=== PATIENT | male | born 1950 | race Caucasian/White ===

== ENCOUNTER 2024-01-15 13:26 | Inpatient (IN) | payer OTHER, SELFPAY ==
[2024-01-15] VITALS (7 sets, daily range): BP systolic 164–179; BP diastolic 76–97; BMI 28.3
[2024-01-15 10:50] LABS: Glucose - Point of Care 258 mg/dl (70-99)
[2024-01-15 11:36] LABS: % Basophils 0.6 % (0-2); % Eosinophils 4.9 % (0-6); % Immature Granulocytes 0.4 % (0-0.5); % Lymphocytes 18.8 % (20.5-51.1); % Monocytes 7.2 % (1.7-9.3); % Neutrophils 68.1 % (42.2-75.2); Absolute Eosinophils 0.3 10^3/uL (0-0.7); Absolute Lymphocytes 1.3 10^3/uL (1.2-3.4); Absolute Monocytes 0.5 10^3/uL (0.1-0.6); Absolute Neutrophils 4.7 10^3/uL (1.4-6.5); Hematocrit 43.3 % (39.0-52.0); Hemoglobin 15.5 g/dL (13.0-18.0); Mean Corp Hgb Conc. 35.8 g/dL (33.0-37.0); Mean Corpuscular Hgb 30.9 pg (27.0-31.0); Mean Corpuscular Volume 86.4 fL (80.0-94.0); Mean Platelet Volume 11.6 fL (7.4-10.4); Nucleated Red Blood Cells % 0 % (-); Platelet Count 161 10^3/uL (130-400); Red Blood Cell Count 5.01 10^6/uL (4.70-6.10); White Blood Cell Count 6.9 10^3/uL (4.8-10.8)
[2024-01-15 11:48] LABS: ALT (SGPT) 22 U/L (0-50); AST (SGOT) 23 U/L (17-59); Albumin 4.1 g/dl (3.5-5.0); Alkaline Phosphatase 72 U/L (38-126); Blood Urea Nitrogen 26 mg/dl (9-20); Calcium 9.6 mg/dl (8.4-10.2); Carbon Dioxide 24 mmol/L (22-30); Chloride 101 mmol/L (98-107); Estimated Creatinine Clearance 106 ml/min; Glucose 244 mg/dl (70-99); Potassium 4.5 mmol/L (3.5-5.1); Sodium 132 mmol/L (135-145); Total Bilirubin 0.6 mg/dl (0.2-1.3); Total Protein 6.8 g/dl (6.3-8.2); eGFR > 60.00
[2024-01-15 11:58] LABS: Troponin I < 0.012 ng/ml
--- NOTE | 2024-01-15 13:05 | ED.GENMED ---
Addendum entered and electronically signed by Luis Cheng DO 01/15/24 14:42:
seenw with Pa
ekgs noted
near syncope
? on bblocker
plan
admit to tele
cardiology consult
Original Note:
History of Present Illness
General
Chief Complaint: Blood Sugar Problem
Source: patient
Exam Limitations: none
Time Seen by Provider: 01/15/24 11:24
Travel History
Have you had any contact with someone who has COVID-19?: No
Do you have any symptoms of coronavirus? Fever > 100 degrees, chills, cough, shortness of breath, sore throat, loss of taste or smell, muscle aches, or headache?: No
History of Present Illness
History of Present Illness:
73-year-old male with history of hypertension [id number] diabetes presents complaining of lightheadedness and near syncope over the past several days. Was seen at the urgent care found to have an arrhythmia and sent here. He denies
chest pain or shortness of breath. No fever or cough. He is on metoprolol 25 mg daily. No other complaints at this time
Past History
Past History
ED Past Medical History: HTN, Hypercholesterolemia and NIDDM
ED Past Surgical History: Orthopedic (Left knee replacement)
Social History
Tobacco: Non-smoker
Phy Exam
Physical Exam
Physical Exam:
General: Well-appearing male no acute respiratory distress
ENT: Normocephalic atraumatic
Heart: Bradycardic and slightly irregular
Lungs: Clear no wheeze or rales
Extremities: No cyanosis or edema
Skin warm no rash
Course
Orders/Labs/Results
Orders:
Orders
01/15/24 10:50
Electrocardiogram (*1) Urgent
Reason for Study: Atrial Fibrillation
EKG- Treatment ONCE
01/15/24 11:25
Electrocardiogram (*1) Urgent
Reason for Study: Chest Pain
Cardiac Monitoring- Treatment ONCE
EKG- Treatment ONCE
IV Insert/Care/Rem.- Treatment PRN
O2 Therapy [RESP] Urgent
Titrate/Wean O2 to maintain O2 sat greater than (%): 90
Special Instructions: Maintain sats >/=90%
Pulse Ox/spot Check [RESP] Urgent
Quantity: 1
Special Instructions: ON ROOM AIR
01/15/24 11:26
Complete Blood Count/With Diff Urgent
Comprehensive Metabolic Panel Urgent
Troponin I Urgent
01/15/24 11:44
Add On- LAB Urgent
Tests Added?: tsh reflex to t4
01/15/24 12:39
TSH Routine
Abnormal Lab Results
01/15/24 01/15/24
10:49 11:26
MPV 11.6 H fL
(7.4-10.4)
Lymphocytes % 18.8 L %
(20.5-51.1)
Sodium 132 L mmol/L
(135-145)
BUN 26 H mg/dl
(9-20)
Glucose 244 H mg/dl
(70-99)
POC Glucose 258 H mg/dl
(70-99)
01/15/24 11:26
01/15/24 11:26
Vital Signs
Initial and Last Documented VS:
Initial Vital Signs
Temp Pulse Resp BP Pulse Ox
98.1 F 67 18 178/97 98
01/15/24 10:46 01/15/24 10:46 01/15/24 10:46 01/15/24 10:46 01/15/24 10:46
Last Documented Vital Signs
Temp Pulse Resp BP Pulse Ox
98.1 F 49 14 178/97 96
01/15/24 10:46 01/15/24 12:00 01/15/24 12:00 01/15/24 10:46 01/15/24 12:00
MDM/Problems Addressed
Differential Diagnosis Includes:
Lightheadedness. Question arrhythmia versus anemia versus electrolyte abnormality
Check labs. EKG reviewed and demonstrates bradycardia with what looks like Mobitz type II. Multiple episodes of bradycardia while here. Heart rate drops into the 30s at times. Discussed findings with cardiology and will admit to hospital for
symptomatic bradycardia and near syncope
*Critical Care Note
Total Time (30-74mins, 75-104mins- exclusive of procedures): Not Applicable
ED Attending Note
-
Portions of this chart may have been created with voice recognition software.� Occasional wrong word or��sound alike� substitutions may have occurred due to the inherent limitations of voice recognition software.
Discharge Plan
Departure
Patient Disposition: Admit
Date of Disposition: 01/15/24
Time of Disposition: 13:07
Admit to: Telemetry
Presentation/result/management discussed w/ accepting MD/DO: Hospitalist
Discharge Problem:
Near syncope
Prescriptions:
No Action
metoprolol tartrate 25 mg Tablet
25 mg PO HS
atorvastatin 40 mg Tablet
40 mg PO HS
aspirin 81 mg Tablet,Delayed Release (Dr/Ec)
81 mg PO HS
sildenafil 100 mg Tablet
100 mg PO DAILY PRN (Reason: ED)
tamsulosin 0.4 mg Capsule
0.4 mg PO Q48H@2200
metformin 1,000 mg Tablet
1,000 mg PO BIDWMEAL
ibuprofen [Advil] 200 mg Tablet
600 mg PO DAILYPRN PRN (Reason: mild pain)
docusate sodium [Stool Softener] 100 mg Capsule
100 mg PO HS
Patient Comments:
01/15/2024, [facility] stool softener.
Referrals:
Dean Alfaro MD [Family Provider] -
Interventions
Interventions:
*Risk Screen - Suicide Last Done: 01/15/24 10:46
*General Assessment Last Done: 01/15/24 10:46
*Neglect/Abuse Screening Last Done: 01/15/24 10:46
ED- Fall Risk Assessment Last Done: 01/15/24 11:30
*ED COVID-19 Vaccine History Last Done: 01/15/24 11:29
ED- Cardiac Assessment Last Done: 01/15/24 11:30
ED- Neurological Assessment Last Done: 01/15/24 11:30
ED- Pulmonary Assessment Last Done: 01/15/24 11:30
Discharge Date and Time
Print Language: YORUBA
--- NOTE | 2024-01-15 13:06 | HPS.HSE ---
Family Physician
-
Family Physician: Dean Alfaro
Chief Complaint
-
Abnormal EKG at urgent care
History of Present Illness
73 years old male came from urgent care. Patient drove himself to urgent care for high blood pressure and high blood glucose. He had an EKG there and was told to go to the hospital. His son met him at the urgent care and drove him to the
emergency room. Patient reported lightheadedness but no chest pain. No shortness of breath. No syncopal episode. Blood pressure on arrival 178/97. Heart rate between 43-70. EKG showed sinus rhythm with second-degree heart block. He was
admitted in [place] a year ago for weakness and had some work done there. Patient has a chronic eczema and gets Kenalog injections for eczema, last one was one week ago.
Medical History
Past Medical History
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
Past Surgical History: Reports Other (No recent major surgery)
Social History
Tobacco: Other (Occasional cigar)
Alcohol: None
Drug: None
Personal:
Living: Alone
Employment: Employed
Family History
Family History: Not pertinent
Allergies / Home Medications
Allergies reflects when Allergies were last updated in [employer].
Home Medications with original date entered in [employer]
Allergy/Medication List:
Allergies
Allergy/AdvReac Type Severity Reaction Status Date / Time
No Known Allergies Allergy Unverified 06/25/20 12:12
Home Medications
aspirin 81 mg tablet,delayed release 81 mg PO HS 01/15/24
atorvastatin 40 mg tablet 40 mg PO HS 01/15/24
docusate sodium 100 mg capsule (Stool Softener) 100 mg PO HS 01/15/24
ibuprofen 200 mg tablet (Advil) 600 mg PO DAILYPRN PRN mild pain 01/15/24
metformin 1,000 mg tablet 1,000 mg PO BIDWMEAL 01/15/24
metoprolol tartrate 25 mg tablet 25 mg PO HS 01/15/24
sildenafil 100 mg tablet 100 mg PO DAILY PRN ED 01/15/24
tamsulosin 0.4 mg capsule 0.4 mg PO Q48H@2200 01/15/24
Review of Systems
-
History Source: Patient
A 12 point ROS was completed and negative except as noted: Yes
Constitutional: Reports Fatigue; Denies Fever
EENT: Denies Sore Throat
Respiratory: Denies Cough
Cardiac: Denies Chest Pain
Abdomen/GI: Denies Abdominal Pain
: Denies Dysuria
Musculoskeletal: Denies Joint Pain or Joint Swelling
Skin: Reports Other (chronic eczema )
Neurological: Reports Dizzy
Endocrine: Denies Temp Intolerance
Hematologic/Lymphatic: Denies Bruising
Psych: Denies Panic Disorder
Physical Exam
Vital Signs
Vital Signs
Temp Pulse Resp BP Pulse Ox
98.1 F 49 14 178/97 96
01/15/24 10:46 01/15/24 12:00 01/15/24 12:00 01/15/24 10:46 01/15/24 12:00
Physical Exam
General: No Apparent Distress and Comfortable
HEENT: Moist mucous membranes and Atraumatic
Respiratory: Clear
Cardiac: Regular Rhythm and Bradycardia
GI: Soft and Non Tender
Rectal: No Maroon Stools
Genito-urinary: No costovertebral tender
Musculoskeletal: No Cyanosis
Skin: Rash
Neuro: AO x 3 and Nonfocal/grossly intact
Psych: Calm and Intact Judgment/Insight
Laboratory Results
-
01/15/24 11:26
01/15/24 11:26
Laboratory Results
Total Bilirubin 0.6 mg/dl (0.2-1.3) 01/15/24 11:26
AST 23 U/L (17-59) 01/15/24 11:26
ALT 22 U/L (0-50) 01/15/24 11:26
Alkaline Phosphatase 72 U/L (38-126) 01/15/24 11:26
Troponin I < 0.012 ng/ml 01/15/24 11:26
Impression/Plan
-
73 years old male presented with abnormal EKG, was found to have second-degree AV block, Mobitz type I
# Heart block, second-degree AV block type I
Patient reported lightheadedness but no chest pain or syncopal episode. Heart rate around 40 with good blood pressure
Will hold beta-aurelio for now. Negative troponin. EKG no acute ischemic changes. No evidence of active infection. Normal thyroid function.
No pleuritic chest pain
Continue to monitor on telemetry.
Check Lyme titer
Order echocardiogram
Appreciate cardiology input
# Diabetes. Will continue with insulin sign scale. Avoid hypoglycemia. Patient reported high blood sugar at home.
Check hemoglobin A1c
#History of primary hypertension. Would to avoid lowering blood pressure with bradycardia.
Continue monitoring
# Hyponatremia, sodium 1 admission 132
# DVT prophylaxis
Total time spent to see the patient, examine the patient, review data and lab results, discuss treatment plan with patient, nursing staff, ER doctor around 75 minutes
[2024-01-15 13:56] LABS: TSH 1.46 uIU/ml (0.47-4.68)
--- NOTE | 2024-01-15 14:30 | CON.CAR ---
Addendum entered and electronically signed by Steven Berman MD 01/15/24 17:11:
Patient seen and examined in collaboration with FIELD RESEARCH ASSOCIATE; agree with below.
-73-year-old male with hypertension and diabetes presenting with lightheadedness; found to have Mobitz 1 with frequently dropped complexes.
-Case discussed with EP Cardiology; will hold metoprolol for now and monitor on telemetry over the weekend.
-Patient will be reevaluated by EP Cardiology on Thursday to see if permanent pacemaker implantation is indicated this admission.
Original Note:
Consultation
Consultation Request
Date/Time Consultation Requested: 01/15/2024 14:00
Date/Time Consultation Performed: 01/15/2024 15:00
Requesting Provider: Blas Magaña PA-C
Performing Provider: DEBBIE Pandya
Reason for Consultation: Abnormal EKG
Medical History
-
Chief Complaint: High blood pressure
History of Present Illness:
Eliazar De León is a 73-year-old male (known to Dr. Burnett, his primary vfx artist), with type 2 diabetes, hypertension, and BPH who presented to urgent care with a chief complaint of elevated blood pressure. EKG there was abnormal and he was
told to proceed to the emergency department. He endorses lightheadedness over the past 5 days. No syncope. No dizziness. No chest pain. EKG shows Mobitz 1. Home medication list reflects metoprolol titrate 25 mg. He is unsure whether or not he
took an extra dose last night or perhaps none at all. Cardiology was consulted.
Past Medical History
Past Medical History: HTN and NIDDM
Social History
Tobacco: Smoker (1 cigar daily)
Alcohol: None
Living: Alone
Employment: Employed
Family History
Family History: Reviewed & Not Pertinent
Allergies / Home Medications
Allergy/AdvReac Type Severity Reaction Status Date / Time
No Known Allergies Allergy Unverified 06/25/20 12:12
�Medication �Instructions �Recorded �Confirmed �Type
aspirin 81 mg tablet,delayed 81 mg PO HS 01/15/24 01/15/24 History
release
atorvastatin 40 mg tablet 40 mg PO HS 01/15/24 01/15/24 History
docusate sodium 100 mg capsule 100 mg PO HS 01/15/24 01/15/24 History
(Stool Softener)
ibuprofen 200 mg tablet (Advil) 600 mg PO DAILYPRN PRN mild pain 01/15/24 01/15/24 History
metformin 1,000 mg tablet 1,000 mg PO BIDWMEAL 01/15/24 01/15/24 History
metoprolol tartrate 25 mg tablet 25 mg PO HS 01/15/24 01/15/24 History
sildenafil 100 mg tablet 100 mg PO DAILY PRN ED 01/15/24 01/15/24 History
tamsulosin 0.4 mg capsule 0.4 mg PO Q48H@2200 01/15/24 01/15/24 History
Review of Systems
-
History Source: Patient
All other systems: Negative unless noted
Cardiac: No Symptoms
Abdomen/GI: No Symptoms
: No Symptoms
Neurological: Other (Lightheadedness)
Physical Exam
Vital Signs
Temp Pulse Resp BP Pulse Ox
97.5 F 50 16 171/87 99
01/15/24 15:05 01/15/24 15:05 01/15/24 15:05 01/15/24 14:00 01/15/24 15:05
Lab Results
01/15/24 11:26
01/15/24 11:26
Troponin I < 0.012 ng/ml 01/15/24 11:26
Physical Exam
General: Well Developed, Well Nourished, No Apparent Distress and Comfortable
HEENT: Normocephalic, Anicteric and Moist Mucous Membranes
Respiratory: Non Labored Respirations
Cardiac: S1/S2 and Irregular Rhythm; Negative Peripheral Edema
Breast: Deferred by me
GI: Soft, Non Tender, Non Distended and Normal Bowel Sounds
Rectal: Deferred by Provider
Genito-urinary: No Costovertebral Tender
Musculoskeletal: No Clubbing, No Cyanosis and No Edema
Skin: Warm and Dry
Neuro: AO x 3
Hematologic/Lymphatic: No Lymphadenopathy
Psych: Calm
Impression / Plan
-
Mobitz I
-Intermittent lightheadedness without syncope
-Hold beta-aurelio
-Unclear whether he took any beta-aurelio last night or actually double
-Echocardiogram
-Follow telemetry
HTN
-Hold beta aurelio as above
NIDDM
Data Reviewed
-
EKG: Report Reviewed by me (Sinus rhythm with second-degree AV block (Mobitz 1), rate 54)
Labs: Labs Reviewed by me
Old Records: Requested
--- NOTE | 2024-01-15 14:40 | PTCARENOTE ---
Addendum entered by Giovanna Mcdonald RN 01/15/24 18:42:
1515
Original Note:
Rec'd Pt A,A+O, denies pain, denies lightheadedness while lying in bed.
--- NOTE | 2024-01-15 15:58 | CM ---
CM following for DC planning needs.
Met w/ patient at bedside to complete initial assessment. Pt. resides in a private, multi level home alone. Functionally, patient is indep. w/ ADLs, mobility without the use of any assisted devices. There is no other DME in the home.
Pt. has Rx plan and uses [facility] [address] [facility] [place] for prescription needs.
Anticipated DC plan is for home without needs.
CM to follow.
[2024-01-15 16:59] LABS: Glucose - Point of Care 192 mg/dl (70-99)
[2024-01-15] MEDS: NOVOLOG FLEXPEN-HIGH RESISTANCE 2 UNITS SC (17:23)
[2024-01-15 20:59] LABS: Glucose - Point of Care 196 mg/dl (70-99)
[2024-01-15] MEDS: LIPITOR 40 MG PO (21:21)
[2024-01-15] MEDS: ASPIR LOW (ENTERIC COATED) 81 MG PO (21:21)
[2024-01-16] VITALS (8 sets, daily range): BP systolic 131–183; BP diastolic 67–94; PULSE 59; BMI 27.2
[2024-01-16 05:47] LABS: Blood Urea Nitrogen 21 mg/dl (9-20); Calcium 9.6 mg/dl (8.4-10.2); Carbon Dioxide 26 mmol/L (22-30); Chloride 104 mmol/L (98-107); Estimated Creatinine Clearance 106 ml/min; Glucose 170 mg/dl (70-99); Potassium 4.4 mmol/L (3.5-5.1); Sodium 133 mmol/L (135-145); eGFR > 60.00
--- NOTE | 2024-01-16 06:34 | W.PN.HOSP.TC ---
Today's Communication/Plan
-
.
Assessment / Plan
Assessment / Plan
Physical Exam
General: No Apparent Distress and Comfortable
HEENT: Moist mucous membranes and Atraumatic
Respiratory: Clear
Cardiac: Regular Rhythm and Bradycardia
GI: Soft and Non Tender
Rectal: No Maroon Stools
Genito-urinary: No costovertebral tender
Musculoskeletal: No Cyanosis
Skin: Rash
Neuro: AO x 3 and Nonfocal/grossly intact
Psych: Calm and Intact Judgment/Insight
73 years old male presented with abnormal EKG, was found to have second-degree AV block, Mobitz type I
# Heart block, second-degree AV block type I
Patient feels well this morning. Not dizzy. Heart rate around 50
Patient reported lightheadedness but no chest pain or syncopal episode.
Continue to hold beta-aurelio for now. Negative troponin. EKG no acute ischemic changes. No evidence of active infection. Normal thyroid function.
No pleuritic chest pain
Continue to monitor on telemetry.
Check Lyme titer
Echocardiogram showed left ventricular ejection fraction 55 to 60%, mild to moderate MR, trace aortic regurgitation, mild TR.
Appreciate cardiology input
# Diabetes.
Poorly controlled.
Blood glucose 170 this morning
will continue with insulin sliding scale. Will add Lantus avoid hypoglycemia. Patient reported high blood sugar at home.
Hemoglobin A1c around 10.[address] back on metformin. Patient will need a better outpatient management. Will refer him to diabetic education office
#History of primary hypertension. Would to avoid lowering blood pressure with bradycardia.
Continue monitoring
# Hyponatremia, sodium on admission 132. Stable sodium around 133
# DVT prophylaxis
Total time spent to see the patient, examine the patient, review data and lab results, discuss treatment plan with patient, nursing staff around 55 minutes
Anticipated Discharge: Within 24 hours
Subjective/Interval History
-
Date of Service: January 16, 2024
No chest pain
No sob
Slept well
Night team: no issues over night
Objective Data
-
Labs:
Laboratory Results
01/16/24
05:08
Sodium 133 L
Potassium 4.4
Chloride 104
Carbon Dioxide 26
BUN 21 H
Creatinine 0.7
Glucose 170 H
Calcium 9.6
Vital Signs:
Vital Signs
Temp Pulse Resp BP Pulse Ox
97.8 F 46 16 179/96 95
01/15/24 23:11 01/15/24 22:55 01/15/24 23:11 01/15/24 22:55 01/15/24 19:20
I&O
01/14/24 01/15/24 01/16/24
06:59 06:59 06:59
Output Total 400 / 400
Balance -400 / -400
[2024-01-16 07:59] LABS: Glucose - Point of Care 170 mg/dl (70-99)
[2024-01-16 09:09] LABS: Glycohemoglobin (HgbA1c) 10.6 % (4.0-5.6)
[2024-01-16] MEDS: NOVOLOG FLEXPEN-HIGH RESISTANCE 2 UNITS SC ×2 (09:51→13:26)
[2024-01-16] MEDS: FLOMAX 0.400000000000000022 MG PO (09:52)
--- NOTE | 2024-01-16 11:10 | W.PN.CD ---
Addendum entered and electronically signed by Steven Berman MD 01/16/24 13:58:
Patient seen and examined in collaboration with CONTRACT MANAGEMENT SPECIALIST; agree with below.
-Patient found to have a 9-Beat run of NSVT on telemetry; near-syncope could have been secondary to progressive heart block versus VT.
-Patient will undergo a Lexiscan stress test on Thursday, followed by EP Cardiology evaluation.
-Continue library monitor.
Original Note:
Today's Communication / Plan
-
Add lisinopril 5 mg PO daily for better BP control
Lexiscan stress test Thursday
Remain off BB and follow telemetry
EP evaluation this admit
Impression / Plan
-
Vikas Elizabeth, 2:1 conduction:
-Intermittent lightheadedness without syncope
-Hold beta-aurelio
-Follow telemetry
-EP consult Thursday
-Echo 01/15/24: LV ejection fraction is 55-60%. Mild to moderate mitral regurgitation.
NSVT:
-EF normal, K+ normal, check mag
-off BB for above
-Lexiscan nuclear stress test Thursday
HTN
-BB held and BP high
-add lisinopril 5 mg daily
NIDDM:
-per primary
Subjective:
feels good this AM no dizziness
Physical Exam
Vital Signs/Labs
Vital Signs
Temp Pulse Resp BP Pulse Ox
98.0 F 55 18 183/88 97
01/16/24 07:30 01/16/24 08:00 01/16/24 07:30 01/16/24 07:51 01/16/24 07:30
01/15/24 01/16/24 01/17/24
06:59 06:59 06:59
Actual Weight 94.4 kg 90.9 kg
01/15/24 11:26
01/16/24 05:08
TSH 1.46 uIU/ml (0.47-4.68) 01/15/24 12:39
LAB Results
01/15/24
11:26
Troponin I < 0.012
Physical Exam
Constitutional: No acute distress
EENT: Anicteric
Cardiovascular: Rhythm & rate is regular
Respiratory: Respiratory effort normal and Lungs clear to auscul.
GI: Soft, Non tender and Normal bowel sounds
Neuro/Psych: AO x 3
Other: Skin (warm and dry)
Data Reviewed
-
Date of Service: January 16, 2024
EKG: Other (SR weaver 1 episodes 2:1)
[2024-01-16 11:59] LABS: Magnesium 1.9 mg/dl (1.6-2.3)
[2024-01-16 13:12] LABS: Glucose - Point of Care 175 mg/dl (70-99)
[2024-01-16] MEDS: ZESTRIL 5 MG PO (13:26)
[2024-01-16 17:28] LABS: Glucose - Point of Care 232 mg/dl (70-99)
[2024-01-16] MEDS: GLUCOPHAGE 1000 MG PO (17:53)
[2024-01-16] MEDS: NOVOLOG FLEXPEN-HIGH RESISTANCE 7 UNITS SC (17:53)
[2024-01-16] MEDS: HEPARIN 5000 UNITS SC (19:46)
[2024-01-16 21:59] LABS: Glucose - Point of Care 118 mg/dl (70-99)
[2024-01-16] MEDS: ASPIR LOW (ENTERIC COATED) 81 MG PO (22:10)
[2024-01-16] MEDS: LIPITOR 40 MG PO (22:10)
[2024-01-16] MEDS: LANTUS 0.100000000000000006 UNITS SC (22:10)
[2024-01-17] MEDS: TYLENOL 650 MG PO (02:36)
[2024-01-17 05:50] VITALS: BP 119/47
--- NOTE | 2024-01-17 06:34 | W.PN.HOSP.TC ---
Today's Communication/Plan
-
.
Assessment / Plan
Assessment / Plan
Physical Exam
General: No Apparent Distress and Comfortable
HEENT: Moist mucous membranes and Atraumatic
Respiratory: Clear
Cardiac: Regular Rhythm and Bradycardia
GI: Soft and Non Tender
Rectal: No Maroon Stools
Genito-urinary: No costovertebral tender
Musculoskeletal: No Cyanosis
Skin: Rash
Neuro: AO x to self and surroundings. Followed commands.
Psych: Calm and Intact Judgment/Insight
73 years old male presented with abnormal EKG, was found to have second-degree AV block, Mobitz type I
# Heart block, second-degree AV block type I
Patient feels well. Not dizzy. Heart rate was around 50
Had a short run of NSVT on telemetry
Patient reported lightheadedness but no chest pain or syncopal episode.
Continue to hold beta-aurelio for now. Negative troponin. EKG no acute ischemic changes. No evidence of active infection. Normal thyroid function.
No pleuritic chest pain
Continue to monitor on telemetry.
Lyme test is pending
Mg 1.9, K 4.4
Echocardiogram showed left ventricular ejection fraction 55 to 60%, mild to moderate MR, trace aortic regurgitation, mild TR.
Appreciate cardiology input
# Mild memory impairment/ cognitive impairment
Not a confirmed diagnosis yet. Daughter Dayanna took him to neurologist Dr. Wilkinson in [place] with [facility] after family suspected dementia. Pt is scheduled for MRI brain in OP setting on 02/08. Possibilty of not taking his meds regularly at home.
# Right shoulder pain
c/w Tylenol
Add low dose Tramadol PRN
# Diabetes.
Poorly controlled.
Blood glucose 130 this morning
will continue with insulin sliding scale. Added low dose Lantus ( hold tonight for NPO status in AM)
Avoid hypoglycemia. Patient reported high blood sugar at home.
Hemoglobin A1c around 10.6
Back on metformin. Patient will need a better outpatient management. Will refer him to OP diabetic education office
#History of primary hypertension. Would to avoid lowering blood pressure with bradycardia. Given low dose FERNANDO
Continue monitoring
# Hyponatremia, sodium on admission 132. Stable sodium around 133
BMP in am
# DVT prophylaxis, SQ Heparin
Total time spent to see the patient, examine the patient, review data and lab results, discuss treatment plan with patient, daughter, nursing staff around 57 minutes
Anticipated Discharge: > 48 hours
Subjective/Interval History
-
Date of Service: January 17, 2024
No events over night
No chest pain
pain complained of right shoulder pain, took Tylenol
No chest pain
Objective Data
-
Vital Signs:
Vital Signs
Temp Pulse Resp BP Pulse Ox
98.1 F 54 18 119/47 96
01/16/24 22:05 01/17/24 06:00 01/16/24 22:05 01/17/24 05:50 01/16/24 22:05
I&O
01/15/24 01/16/24 01/17/24
06:59 06:59 06:59
Intake Total 720 / 720
Output Total 400 / 400 200 / 200
Balance -400 / -400 520 / 520
[2024-01-17 07:58] VITALS: BP 123/73
[2024-01-17 08:02] LABS: Glucose - Point of Care 130 mg/dl (70-99)
[2024-01-17 09:00] VITALS: BMI 26.9
[2024-01-17] MEDS: FLOMAX 0.400000000000000022 MG PO (09:14)
[2024-01-17] MEDS: NOVOLOG FLEXPEN-HIGH RESISTANCE SC (09:14)
[2024-01-17] MEDS: HEPARIN 5000 UNITS SC ×2 (09:15→20:14)
[2024-01-17] MEDS: GLUCOPHAGE 1000 MG PO ×2 (09:15→17:29)
[2024-01-17] MEDS: ZESTRIL 5 MG PO (09:15)
--- NOTE | 2024-01-17 10:28 | PTCARENOTE ---
Assumed care of pt from night RN. Pt received awake and alert. When asked what day it was he said 'Mother's Day' Pt reoriented to place and time. Seems a bit forgetful. VSS, HASMUKH shows NSR with first degree AVB, POX 96% on RA. He denies any pain
or discomfort at this time. Plan is for stress test tomorrow.
[2024-01-17 12:02] VITALS: BP 151/73
[2024-01-17 12:04] LABS: Glucose - Point of Care 148 mg/dl (70-99)
[2024-01-17] MEDS: NOVOLOG FLEXPEN-HIGH RESISTANCE 1 UNITS SC (12:04)
[2024-01-17 15:15] VITALS: PULSE 78
[2024-01-17 15:43] VITALS: BP 128/73
--- NOTE | 2024-01-17 16:08 | W.PN.CD ---
Today's Communication / Plan
-
-Patient developed transient Mobitz 2 heart block overnight on telemetry.
-Lexiscan nuclear stress test tomorrow; if unremarkable, will undergo permanent pacemaker implantation afterwards.
-NPO after midnight.
-Holding beta-aurelio; resume post-device.
Impression / Plan
-
Advanced heart block (Mobitz 1 and Mobitz II):
-Intermittent lightheadedness without syncope
-Holding beta-aurelio.
-Continue panel monitor.
-Echo 01/15/24: LV ejection fraction is 55-60%. Mild to moderate mitral regurgitation.
-Permanent pacemaker implantation after stress test tomorrow, if no ischemia on stress test.
NSVT:
-EF normal, K+ normal, check mag
-Lexiscan nuclear stress test tomorrow; if unremarkable, will undergo permanent pacemaker implantation afterwards.
-NPO after midnight.
-Holding beta-aurelio; resume post-device.
HTN
-Blood pressure is fairly controlled; continue current medications.
NIDDM:
-per primary
Subjective:
Patient developed transient Mobitz 2 heart block overnight on telemetry.
Physical Exam
Vital Signs/Labs
Vital Signs
Temp Pulse Resp BP Pulse Ox
98.2 F 67 16 128/73 97
01/17/24 15:43 01/17/24 15:43 01/17/24 15:43 01/17/24 15:43 01/17/24 15:43
01/16/24 01/17/24 01/18/24
06:59 06:59 06:59
Actual Weight 94.4 kg 90.9 kg
01/15/24 11:26
01/16/24 05:08
Magnesium 1.9 mg/dl (1.6-2.3) 01/16/24 05:08
TSH 1.46 uIU/ml (0.47-4.68) 01/15/24 12:39
LAB Results
01/15/24
11:26
Troponin I < 0.012
Physical Exam
Constitutional: No acute distress and Comfortable
EENT: Anicteric
Cardiovascular: Rhythm & rate is regular, Pedal edema is absent, Systolic murmur absent and S1S2 is normal
Respiratory: Respiratory effort normal and Lungs clear to auscul.
GI: Soft
Neuro/Psych: AO x 3
Other: Skin (Warm, dry, intact)
Data Reviewed
-
Date of Service: January 17, 2024
EKG: Tracing Personally Visualized and interpreted (Telemetry: Transient Mobitz 2 heart block)
Medical Tests (PFT, Pathology etc): Discussed with Patient and Discussed with Family (Daughter via telephone)
Labs: Labs Reviewed by me
[2024-01-17 17:28] LABS: Glucose - Point of Care 184 mg/dl (70-99)
[2024-01-17] MEDS: NOVOLOG FLEXPEN-HIGH RESISTANCE 2 UNITS SC (17:28)
[2024-01-17 20:20] VITALS: BP 151/91
[2024-01-17] MEDS: ULTRAM 25 MG PO (20:24)
--- NOTE | 2024-01-17 21:15 | PTCARENOTE ---
aaox3 but forgetful. second degree hb. (mobitz 2) hr in the 30's at times. pt asymptomatic. pt updated on plan of care. vss will monitor.
[2024-01-17 21:36] LABS: Glucose - Point of Care 117 mg/dl (70-99)
[2024-01-17] MEDS: LIPITOR 40 MG PO (21:40)
[2024-01-17] MEDS: ASPIR LOW (ENTERIC COATED) 81 MG PO (21:40)
[2024-01-17] MEDS: LANTUS 0.100000000000000006 UNITS SC (21:41)
[2024-01-18] VITALS (7 sets, daily range): BP systolic 94–145; BP diastolic 61–75; BMI 26.9
[2024-01-18 04:49] LABS: Hematocrit 44.3 % (39.0-52.0); Hemoglobin 15.8 g/dL (13.0-18.0); Mean Corp Hgb Conc. 35.7 g/dL (33.0-37.0); Mean Corpuscular Hgb 30.7 pg (27.0-31.0); Mean Corpuscular Volume 86.2 fL (80.0-94.0); Mean Platelet Volume 11.6 fL (7.4-10.4); Platelet Count 157 10^3/uL (130-400); Red Blood Cell Count 5.14 10^6/uL (4.70-6.10); Red Cell Dist. Width 11.9 % (11.5-14.5); White Blood Cell Count 6.8 10^3/uL (4.8-10.8)
[2024-01-18 05:17] LABS: Blood Urea Nitrogen 32 mg/dl (9-20); Calcium 9.5 mg/dl (8.4-10.2); Carbon Dioxide 22 mmol/L (22-30); Chloride 106 mmol/L (98-107); Estimated Creatinine Clearance 93 ml/min; Glucose 97 mg/dl (70-99); Potassium 4.4 mmol/L (3.5-5.1); Sodium 134 mmol/L (135-145); eGFR > 60.00
[2024-01-18] MEDS: NOVOLOG FLEXPEN-HIGH RESISTANCE SC ×3 (05:39→22:23)
[2024-01-18 07:54] LABS: Glucose - Point of Care 92 mg/dl (70-99)
--- NOTE | 2024-01-18 08:23 | PTCARENOTE ---
Pt AAOx2 this AM, pt somewhat confused to place, stating he was 'woken up at 0630 & put here waiting for his room'. This RN reoriented pt & explained that he is in his hospital room & it's the same room since admission. Discussed plan of care for
the day & pt verbalized understanding of upcoming NM stress test, but then insisting he needs his sneakers from , eventhough it was explained he would be receiving a medication to stimulate his heart rather than running on a treadmill. This RN
also questioned pt whether he has some confusion at home. Pt admitted that he does, but stated 'please don't tell anyone that'. Emotional support provided. Pt taken via wheelchair to [place]. Plan of care ongoing.
[2024-01-18] MEDS: FLUSH (NSS) 1 FLUSH IV (10:25)
[2024-01-18] MEDS: LEXISCAN 0.400000000000000022 MG IV (10:25)
[2024-01-18] MEDS: GLUCOPHAGE PO (12:25)
[2024-01-18] MEDS: FLOMAX PO (12:25)
[2024-01-18] MEDS: HEPARIN SC ×2 (13:04→13:12)
[2024-01-18 13:05] LABS: Glucose - Point of Care 122 mg/dl (70-99)
[2024-01-18] MEDS: ZESTRIL 5 MG PO (13:06)
--- NOTE | 2024-01-18 13:29 | W.PN.UPDATE ---
Update Note
Progress Note Update
Nuclear stress: no evidence of ischemia/infarction. EF 66%. Full report to follow.
--- NOTE | 2024-01-18 13:47 | W.PN.CD ---
Today's Communication / Plan
-
PPM in am
Follow telemetry
Impression / Plan
-
Background: 73M with type 2 diabetes, hypertension, and BPH who presented to urgent care with a chief complaint of elevated blood pressure
Buttoner: Dr. Burnett
Advanced heart block (Mobitz I and Mobitz II):
-Intermittent lightheadedness without syncope
-Holding beta-aurelio.
-Continue management development specialist.
-Echo 01/15/24: LV ejection fraction is 55-60%. Mild to moderate mitral regurgitation.
-Permanent pacemaker implantation tomorrow, NPO after midnight
NSVT:
-EF normal, with stable electrolytes
-Lexiscan nuclear stress test unremarkable, full report to follow
-Holding beta-aurelio; resume post-device.
HTN
-Blood pressure is fairly controlled; continue current medications.
NIDDM, Hgba1c 10.6%, per primary
Subjective:
Denies chest pain and shortness of breath
Physical Exam
Vital Signs/Labs
Vital Signs
Temp Pulse Resp BP Pulse Ox
98.1 F 59 20 138/75 99
01/18/24 13:00 01/18/24 12:00 01/18/24 13:00 01/18/24 13:06 01/18/24 13:00
01/17/24 01/18/24 01/19/24
06:59 06:59 06:59
Actual Weight 90.9 kg 89.811 kg
01/18/24 04:38
01/18/24 04:38
Magnesium 2.0 mg/dl (1.6-2.3) 01/18/24 04:38
TSH 1.46 uIU/ml (0.47-4.68) 01/15/24 12:39
Physical Exam
Constitutional: No acute distress and Comfortable
EENT: Anicteric and Moist mucous membranes
Cardiovascular: Rhythm/rate is irregular and S1S2 is normal
Respiratory: Respiratory effort normal and Lungs clear to auscul.
GI: Soft, Distention absent, Flat, Non tender and Normal bowel sounds
Neuro/Psych: AO x 3
Other: Skin (warm and dry)
Data Reviewed
-
Date of Service: January 18, 2024
Labs: Labs Reviewed by me
--- NOTE | 2024-01-18 15:00 | W.PN.HOSP.TC ---
Today's Communication/Plan
-
npo after mn for PPM
Assessment / Plan
Assessment / Plan
Physical Exam
General: No Apparent Distress and Comfortable
HEENT: Moist mucous membranes and Atraumatic
Respiratory: Clear
Cardiac: Regular Rhythm and Bradycardia
GI: Soft and Non Tender
Rectal: No Maroon Stools
Genito-urinary: No costovertebral tender
Musculoskeletal: No Cyanosis
Skin: Rash
Neuro: AO x to self and surroundings. Followed commands.
Psych: Calm and Intact Judgment/Insight
73 years old male presented with abnormal EKG, was found to have second-degree AV block, Mobitz type I
# Heart block, second-degree AV block type II
Patient feels well. Not dizzy. Heart rate was around 50
Echocardiogram showed left ventricular ejection fraction 55 to 60%, mild to moderate MR, trace aortic regurgitation, mild TR.
Appreciate cardiology input
Stress Test today
tentaive PPM in AM -ppm in place
holding BB, can restart once PPM in place
# Mild memory impairment/ cognitive impairment
Not a confirmed diagnosis yet. Daughter Dayanna took him to neurologist Dr. Wilkinson in [place] with [place] after family suspected dementia. Pt is scheduled for MRI brain in OP setting on 02/08. Possibilty of not taking his meds regularly at home.
# Right shoulder pain
c/w Tylenol
Add low dose Tramadol PRN
# Diabetes.
Poorly controlled.
Blood glucose 130 this morning
will continue with insulin sliding scale. Added low dose Lantus (half dose tonight due to NPO after MN)
Avoid hypoglycemia. Patient reported high blood sugar at home.
Hemoglobin A1c around 10.6
Back on metformin. Patient will need a better outpatient management. Will refer him to OP diabetic education office
#History of primary hypertension. Would to avoid lowering blood pressure with bradycardia. Given low dose FERNANDO
Continue monitoring
# Hyponatremia, sodium on admission 132. Stable sodium around 133
BMP in am
# DVT prophylaxis, SQ Heparin
Total time spent to see the patient, examine the patient, review data and lab results, discuss treatment plan with patient, daughter, nursing staff around 57 minutes
Anticipated Discharge: 24 - 48 hours
Subjective/Interval History
-
Date of Service: January 18, 2024
no acute events
Objective Data
-
Labs:
Laboratory Results
01/18/24
04:38
WBC 6.8
Hgb 15.8
Hct 44.3
Plt Count 157
Sodium 134 L
Potassium 4.4
Chloride 106
Carbon Dioxide 22
BUN 32 H
Creatinine 0.8
Glucose 97
Calcium 9.5
Vital Signs:
Vital Signs
Temp Pulse Resp BP Pulse Ox
98.1 F 59 20 138/75 99
01/18/24 13:00 01/18/24 14:00 01/18/24 13:00 01/18/24 13:06 01/18/24 13:00
I&O
01/17/24 01/18/24 01/19/24
06:59 06:59 06:59
Intake Total 720 / 720
Output Total 200 / 200
Balance 520 / 520
Review of Systems
-
History Source: Patient
All other systems: Not reviewed unless documented
Data Reviewed
-
Labs: Labs Reviewed by me
--- NOTE | 2024-01-18 15:04 | CM ---
Chart reviewed. Patient is independent of ADLS, lives alone in a 3 STH, 0 DME. Plan is for the patient to return home. CM to follow.
[2024-01-18 16:26] LABS: Lyme Antibody Screen, EIA Negative (Negative)
[2024-01-18 18:11] LABS: Glucose - Point of Care 155 mg/dl (70-99)
[2024-01-18] MEDS: GLUCOPHAGE 1000 MG PO (18:26)
[2024-01-18] MEDS: NOVOLOG FLEXPEN-HIGH RESISTANCE 2 UNITS SC (18:26)
[2024-01-18] MEDS: LANTUS 0.0500000000000000028 UNITS SC (21:05)
[2024-01-18 21:06] LABS: Glucose - Point of Care 128 mg/dl (70-99)
[2024-01-18] MEDS: LIPITOR 40 MG PO (21:06)
[2024-01-18] MEDS: ASPIR LOW (ENTERIC COATED) 81 MG PO (21:06)
[2024-01-18] MEDS: HEPARIN 5000 UNITS SC (21:06)
[2024-01-19] VITALS (28 sets, daily range): BP systolic 104–154; BP diastolic 48–104; PULSE 44–57; O2SAT 99; BMI 27.2
[2024-01-19] MEDS: ULTRAM 25 MG PO ×2 (00:16→22:19)
[2024-01-19 06:30] LABS: Hematocrit 46.1 % (39.0-52.0); Hemoglobin 16.3 g/dL (13.0-18.0); Mean Corp Hgb Conc. 35.4 g/dL (33.0-37.0); Mean Corpuscular Hgb 30.9 pg (27.0-31.0); Mean Corpuscular Volume 87.5 fL (80.0-94.0); Mean Platelet Volume 11.7 fL (7.4-10.4); Platelet Count 177 10^3/uL (130-400); Red Blood Cell Count 5.27 10^6/uL (4.70-6.10)
[2024-01-19 06:48] LABS: Blood Urea Nitrogen 29 mg/dl (9-20); Calcium 9.6 mg/dl (8.4-10.2); Carbon Dioxide 22 mmol/L (22-30); Chloride 105 mmol/L (98-107); Estimated Creatinine Clearance 93 ml/min; Glucose 125 mg/dl (70-99); Magnesium 2.1 mg/dl (1.6-2.3); Potassium 4.6 mmol/L (3.5-5.1); Sodium 133 mmol/L (135-145); eGFR > 60.00
[2024-01-19 07:31] LABS: Glucose - Point of Care 121 mg/dl (70-99)
[2024-01-19] MEDS: NOVOLOG FLEXPEN-HIGH RESISTANCE SC ×2 (07:32→12:14)
--- NOTE | 2024-01-19 07:36 | PTCARENOTE ---
Pt clipped and wiped for PPM. L FA iv site placed.
--- NOTE | 2024-01-19 07:45 | PTCARENOTE ---
Assumed care of pt from prev nsg shift. Pt AAOx2-3, pt mildly confused to time & sometimes to place, but easily reoriented. Pt w/BP stable, HR is 30's-40's at rest. 50's w/activity. Pt is in a 3rd degree heart block on telemetry monitoring. No c/o
CP or SOB. Pt w/call griffith within reach & plan of care ongoing.
[2024-01-19] MEDS: FLOMAX 0.400000000000000022 MG PO (10:08)
[2024-01-19] MEDS: ZESTRIL 5 MG PO (10:08)
[2024-01-19] MEDS: GLUCOPHAGE 1000 MG PO ×2 (10:08→17:53)
[2024-01-19] MEDS: HEPARIN 5000 UNITS SC ×2 (10:09→20:28)
--- NOTE | 2024-01-19 11:20 | CM ---
Chart reviewed. Patient is independent of ADLS, lives alone in a 3 STH, 0 DME. Plan is for the patient to return home. CM to follow
[2024-01-19 12:04] LABS: Glucose - Point of Care 113 mg/dl (70-99)
[2024-01-19] MEDS: DOPamine 400 MG 250 IV (13:20)
[2024-01-19] MEDS: FLUSH (NSS) 1 FLUSH IV (13:24)
--- NOTE | 2024-01-19 13:25 | PTCARENOTE ---
Pt in & out of 3rd degree heart block, SB, & 2nd degree heart block on telemetry monitoring. HR in upper 30's-40's. Pt reporting 'feeling dizzy', this RN advised pt to remain in bed until his planned PPM procedure. Cardiac PA notified & ordered
rec'd to start Dopamine IV drip on pt until taken to blood and plasma laboratory assistant for PPM. Advised by Cardiology pt will be the next case. Pt in bed w/Dopamine drip infusing at ordered rate. VS stable w/initiation HR 44, BP 124/71. Will check next BP in 15 mins from
initiation of drip. Pt w/call griffith within reach.
Repeat BP 110/71, HR upper 50's & low 60's. Pt compliant w/bedrest.
--- NOTE | 2024-01-19 14:07 | W.PN.HOSP.TC ---
Today's Communication/Plan
-
ppm today
Assessment / Plan
Assessment / Plan
Physical Exam
General: No Apparent Distress and Comfortable
HEENT: Moist mucous membranes and Atraumatic
Respiratory: Clear
Cardiac: Regular Rhythm and Bradycardia
GI: Soft and Non Tender
Rectal: No Maroon Stools
Genito-urinary: No costovertebral tender
Musculoskeletal: No Cyanosis
Skin: Rash
Neuro: AO x to self and surroundings. Followed commands.
Psych: Calm and Intact Judgment/Insight
73 years old male presented with abnormal EKG, was found to have second-degree AV block, Mobitz type I
# Heart block, second-degree AV block type II
Patient feels well. Not dizzy. Heart rate was around 50
Echocardiogram showed left ventricular ejection fraction 55 to 60%, mild to moderate MR, trace aortic regurgitation, mild TR.
Appreciate cardiology input
Stress Test today
tentaive PPM in AM -ppm in place
holding BB, can restart once PPM in place
# Mild memory impairment/ cognitive impairment
Not a confirmed diagnosis yet. Daughter Dayanna took him to neurologist Dr. Wilkinson in [place] with Kalia after family suspected dementia. Pt is scheduled for MRI brain in OP setting on 02/08. Possibilty of not taking his meds regularly at home.
# Right shoulder pain
c/w Tylenol
Add low dose Tramadol PRN
# Diabetes.
Poorly controlled.
Blood glucose 130 this morning
will continue with insulin sliding scale. Added low dose Lantus
Avoid hypoglycemia. Patient reported high blood sugar at home.
Hemoglobin A1c around 10.6
Back on metformin. Patient will need a better outpatient management. Will refer him to OP diabetic education office
#History of primary hypertension. Would to avoid lowering blood pressure with bradycardia. Given low dose FERNANDO
Continue monitoring
# Hyponatremia, sodium on admission 132. Stable sodium around 133
BMP in am
# DVT prophylaxis, SQ Heparin
Total time spent to see the patient, examine the patient, review data and lab results, discuss treatment plan with patient, daughter, nursing staff around 55 minutes
Anticipated Discharge: Within 24 hours
Subjective/Interval History
-
Date of Service: January 19, 2024
no acute events, ppm today
Objective Data
-
Labs:
Laboratory Results
01/19/24
06:15
WBC 8.0
Hgb 16.3
Hct 46.1
Plt Count 177
Sodium 133 L
Potassium 4.6
Chloride 105
Carbon Dioxide 22
BUN 29 H
Creatinine 0.8
Glucose 125 H
Calcium 9.6
Vital Signs:
Vital Signs
Temp Pulse Resp BP Pulse Ox
97.7 F 46 14 128/104 98
01/19/24 11:31 01/19/24 13:21 01/19/24 11:31 01/19/24 13:21 01/19/24 11:31
I&O
01/18/24 01/19/24 01/20/24
06:59 06:59 06:59
Intake Total 480 / 480 40 / 40
Balance 480 / 480 40 / 40
Review of Systems
-
History Source: Patient
All other systems: Not reviewed unless documented
Data Reviewed
-
Labs: Labs Reviewed by me
--- NOTE | 2024-01-19 14:50 | PTCARENOTE ---
Report given to Tamika in the EP lab; 2nd set of CHG wipes completed on pt & pt picked up by EP nurses. Taken for new PPM in his bed w/Dopamine infusion continuing. Plan of care ongoing.
--- NOTE | 2024-01-19 16:20 | W.PN.CD ---
Today's Communication / Plan
-
- PPM today
- Resume beta blockers post implant
Impression / Plan
-
Background: 73M with type 2 diabetes, hypertension, and BPH who presented to urgent care with a chief complaint of elevated blood pressure
Maid Cleaning Cooking: Dr. Burnett
Advanced heart block (Mobitz I and Mobitz II):
-Intermittent lightheadedness without syncope
-Holding beta-aurelio.
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
-Echo 01/15/24: LV ejection fraction is 55-60%. Mild to moderate mitral regurgitation.
-Permanent pacemaker implantation today
NSVT:
-EF normal, with stable electrolytes
-Lexiscan nuclear stress test unremarkable, full report to follow
-Holding beta-aurelio; resume post-device.
HTN
-Blood pressure is fairly controlled; continue current medications.
NIDDM, Hgba1c 10.6%, per primary
Subjective:
Denies chest pain and shortness of breath
Physical Exam
Vital Signs/Labs
Vital Signs
Temp Pulse Resp BP Pulse Ox
97.7 F 81 14 122/66 98
01/19/24 11:31 01/19/24 14:45 01/19/24 11:31 01/19/24 14:45 01/19/24 11:31
01/18/24 01/19/24 01/20/24
06:59 06:59 06:59
Actual Weight 89.811 kg 90.9 kg
01/19/24 06:15
01/19/24 06:15
Magnesium 2.1 mg/dl (1.6-2.3) 01/19/24 06:15
TSH 1.46 uIU/ml (0.47-4.68) 01/15/24 12:39
Physical Exam
Constitutional: No acute distress and Comfortable
EENT: Anicteric and Moist mucous membranes
Cardiovascular: Rhythm & rate is regular, JVD pressure is normal and Systolic murmur absent
Respiratory: Respiratory effort normal, Wheeze Absent and Crackles Absent
GI: Soft, Distention absent, Non tender and Normal bowel sounds
Neuro/Psych: Alert, Oriented and AO x 3
Other: Cardiac Device Site
Data Reviewed
-
Date of Service: January 19, 2024
Medical Decision Making: Reviewed Test Results, Independent Historian Assessment, Test Interpretation and Review of Case with other Provider
EKG: Tracing Personally Visualized and interpreted
Echo: Report Reviewed by me
Labs: Labs Reviewed by me
Old Records: Reviewed
--- NOTE | 2024-01-19 16:21 | ITS.CL.PACE ---
Aviation Electronics Technician - Pacemaker Implant
Pacemaker Implant
Procedure Report:
Dual Chamber Pacemaker Placement:
Mr. De León is a very pleasant 73 yrs old gentleman with intermittent complete heart block with severe symptomatic bradycardia and is recommended for PPM placement.�
Indications: High degree AV block
Date of the Procedure: 01/19/24
Pre-Operative Diagnosis: Complete heart block
Post-Operative Diagnosis: Complete heart block
Procedure Performed: DUAL CHAMBER PACEMAKER IMPLANTATION
Performing Physician:
Ranjith Fitch MD
Assistants:
EP staff
Anesthesia:
See anesthesia report
Pre-operative antibiotics:
Ancef
Detailed Description of the Procedure:
The patient was identified using hospital identification and informed consent obtained for the procedure. The risks were explained including, but not limited to: Bleeding, infection, arrhythmia, stroke, vascular/cardiac/lung puncture, surgery,
pacemaker dependency/device malfunction. All questions were answered.
The patient was brought to the electrophysiology laboratory in stable condition in fasting state. Continuous electrocardiographic and hemodynamic monitoring was initiated.
The initial rhythm was normal sinus rhythm.
A surgical pause and time out was performed immediately prior to the procedure with review of her medical history, recent labs, allergies and medications with site of procedure identified and consent noted in the chart. Antibiotics pre operatively
given. All team members concurred.
The procedure site was meticulously prepared with surgical scrub and allowed to dry with no pooling. Sterile draping was applied to cover the procedure site. The image intensifier was draped with sterile bag and positioned over the patient.
The left infraclavicular region was prepped and draped in the usual sterile fashion. Local anesthesia was administered subcutaneously using 1% lidocaine / Bupivacaine. The left cephalic vein cutdown was performed with an incision at the
delto-pectoral groove, and vascular sheaths were introduced for lead access. These were advanced into the right ventricle and the right atrium.
The right ventricular lead was secured in position with an active fixation technique at the apical septal location.
The RA lead was attached in the right atrial appendage with active fixation.
There was excellent sensing, pacing, and impedance from the leads, with no diaphragmatic stimulation at 10 V output.�Bovie cautery, antibiotics, and fluoroscopy were used.
The sheaths were withdrawn, and the thresholds remained acceptable. The leads were secured in position at the venous entry site with 2-0 Ethibond. A pocket was fashioned contiguous to the incision. The electrode terminals were connected to the pulse
generator, which was placed into the pocket. The wound was irrigated thoroughly with antibiotic solution.
The wound was closed in 3 layers using 2-0 V loc then two layers of 4-0 V loc sutures to the dermis. Steri-strips were applied externally and covered with Aquacel bandage.
Procedure End:
The procedure was tolerated well.
Estimated Blood loss:
10 cc
Specimens Removed:
No cultures and no specimens were obtained. No intraoperative pathology was identified.
Fluoro time:
1.2 min / 4.1mGy
Urine output:
None
Packs / Drains/ Tubes:
None
Instrument / Sponge Count Correct:
Yes
Complications of the Procedure:
None
Condition of Patient at Time of Transfer:
Hemodynamically stable with no neurological or vascular compromise.
Device information:�
Generator: Kaiima; Model: W1DR01; Serial # [id number]�
Atrial Lead:
Kaiima; Model: 5076-52; Serial # [id number]�
Measured data in the right atrium was sensing of 3.5 mV, impedance of 779 ohms and threshold of 1.0 V at 0.4ms.
RV Lead:
Medtronic; Model: 5076-58; Serial # [id number]
Measured data in the RV lead was sensing of 6.5mV, impedance of 779 ohms and threshold of 0.5 V at 0.4ms�
Christian parameter settings were AAIR < = > DDDR 60-130 bpm. �
����������� Mode Switch: On
����������� Paced AV interval: 180ms
����������� Sensed AV interval: 150 ms.
����������� Rate Adaptive A-V Interval: Off
Output parameters:
����������������������� Amplitude (V)������������� Pulse Width (ms)������� Sensitivity (mV)
����������� RA: ���� 3.5 ����������������� ����������� 0.4������������������ ����������� 0.3
����������� RV:����� 3.5������������������ ����������� 0.4������������������ ����������� 0.9
Summary:
Successful implantation of MRI compatible dual chamber pacemaker
Results/Recommendations:
-Please follow up CXR�
1. Please provide patient with adequate pain control�
Instructions to be given to patient:�
- Please follow up with [facility] at [address] [place] [address] ([phone]) to get your wound checked within 14 days of your discharge.
- Do not wet incision site until after it is evaluated at cardiology clinic. No soaking or bath until then. Showers or Sponge baths are OK.�Dab dry the area after a shower.
- Do not lift left elbow above shoulder, particularly with sudden jerking movements, for 1 month�
- Do not lift anything weighing more than 10 pounds with the left arm for 1 month�
- If you notice any fevers, shortness of breath, lightheadedness, chest pain, or worsening swelling in the wound site, please contact the arrhythmia clinic, contact your yarn worker, or present to the hospital for evaluation.�
Ranjith Fitch MD
Electrophysiology
--- NOTE | 2024-01-19 16:49 | PTCARENOTE ---
Rec'd report from Cecy in the EP lab & rec'd pt back from getting PPM, AAOx1-2, pt drowsy but arousable & mildly confused to place & time. Pt w/no c/o CP or SOB. Pt w/Dopamine IV drip now off. Pt w/new L chest wall PPM site w/aquacell dressing &
immobilizer in place. No signs of bleeding or hematoma. VS stable, pt's HR now 60's & is AV paced on telemetry monitoring. Pt w/call griffith within reach & no addtl needs at this time. Plan of care ongoing.
[2024-01-19 17:04] LABS: Glucose - Point of Care 104 mg/dl (70-99)
[2024-01-19] MEDS: NOVOLOG FLEXPEN-HIGH RESISTANCE 1 UNITS SC (17:52)
[2024-01-19 21:38] LABS: Glucose - Point of Care 202 mg/dl (70-99)
[2024-01-19] MEDS: ASPIR LOW (ENTERIC COATED) 81 MG PO (21:39)
[2024-01-19] MEDS: LANTUS 0.0500000000000000028 UNITS SC (21:39)
[2024-01-19] MEDS: LIPITOR 40 MG PO (21:39)
[2024-01-19] MEDS: ANCEF 5 IV (21:39)
[2024-01-19] MEDS: MELATONIN 5 MG PO (22:19)
[2024-01-20] VITALS (9 sets, daily range): BP systolic 123–166; BP diastolic 72–90; BMI 29.8
[2024-01-20] MEDS: ANCEF 5 IV (05:13)
[2024-01-20 05:41] LABS: Hemoglobin 15.8 g/dL (13.0-18.0); Mean Corp Hgb Conc. 35.1 g/dL (33.0-37.0); Mean Corpuscular Hgb 31.2 pg (27.0-31.0); Mean Corpuscular Volume 88.8 fL (80.0-94.0); Mean Platelet Volume 12.1 fL (7.4-10.4); Platelet Count 137 10^3/uL (130-400); Red Blood Cell Count 5.07 10^6/uL (4.70-6.10); White Blood Cell Count 7.7 10^3/uL (4.8-10.8)
[2024-01-20 05:58] LABS: Blood Urea Nitrogen 26 mg/dl (9-20); Calcium 9.6 mg/dl (8.4-10.2); Carbon Dioxide 22 mmol/L (22-30); Chloride 105 mmol/L (98-107); Estimated Creatinine Clearance 83 ml/min; Glucose 107 mg/dl (70-99); Potassium 4.5 mmol/L (3.5-5.1); Sodium 134 mmol/L (135-145); eGFR > 60.00
[2024-01-20] MEDS: ULTRAM 25 MG PO ×2 (06:30→21:43)
[2024-01-20 08:11] LABS: Glucose - Point of Care 123 mg/dl (70-99)
--- NOTE | 2024-01-20 08:21 | W.PN.CD ---
Today's Communication / Plan
-
- Incision check in 1-2 weeks with us then follow up with local cardiology
- Stable for discharge
Impression / Plan
-
Background: 73M with type 2 diabetes, hypertension, and BPH who presented to urgent care with a chief complaint of elevated blood pressure
Lab Support Technician: Dr. Burnett
Advanced heart block (Mobitz I and Mobitz II):
-Intermittent lightheadedness s/p dual chamber PPM 01/19/2024 (Medtronic - dual chamber)
-resume beta-aurelio.
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
-Echo 01/15/24: LV ejection fraction is 55-60%. Mild to moderate mitral regurgitation.
NSVT:
-EF normal, with stable electrolytes
-Lexiscan nuclear stress test unremarkable, full report to follow
-resume post-device.
HTN
-Blood pressure is fairly controlled; continue current medications.
NIDDM, Hgba1c 10.6%, per primary
Subjective:
Denies chest pain and shortness of breath
Physical Exam
Vital Signs/Labs
Vital Signs
Temp Pulse Resp BP Pulse Ox
98.6 F 60 18 166/90 99
01/20/24 07:32 01/20/24 04:00 01/20/24 07:32 01/20/24 04:00 01/20/24 07:32
01/19/24 01/20/24 01/21/24
06:59 06:59 06:59
Actual Weight 90.9 kg 99.6 kg
01/20/24 05:12
01/20/24 05:12
Magnesium 2.0 mg/dl (1.6-2.3) 01/20/24 05:12
TSH 1.46 uIU/ml (0.47-4.68) 01/15/24 12:39
Physical Exam
Constitutional: No acute distress and Comfortable
EENT: Anicteric and Moist mucous membranes
Cardiovascular: Rhythm & rate is regular, Pedal edema is absent and JVD pressure is normal
Respiratory: Respiratory effort normal, Lungs clear to auscul. and Wheeze Absent
GI: Soft, Distention absent and Non tender
Neuro/Psych: Alert, Oriented and AO x 3
Other: Cardiac Device Site
Data Reviewed
-
Date of Service: January 20, 2024
Medical Decision Making: Reviewed Test Results, Independent Historian Assessment, Test Interpretation and Review of Case with other Provider
EKG: Tracing Personally Visualized and interpreted
Echo: Report Reviewed by me
X-Ray/CT/US/MRI/NUC/PET: Image Personally Visualized and interpreted
Labs: Labs Reviewed by me
Old Records: Reviewed
--- NOTE | 2024-01-20 08:38 | PTCARENOTE ---
Pt unsteady on his feet this morning, assisted to BR. A,A+O, but forgetful at times.
[2024-01-20] MEDS: FLOMAX 0.400000000000000022 MG PO (09:05)
[2024-01-20] MEDS: GLUCOPHAGE 1000 MG PO ×2 (09:05→17:27)
[2024-01-20] MEDS: ZESTRIL 5 MG PO (09:06)
[2024-01-20] MEDS: HEPARIN 5000 UNITS SC ×2 (09:07→20:45)
[2024-01-20] MEDS: NOVOLOG FLEXPEN-HIGH RESISTANCE 1 UNITS SC ×2 (09:10→14:24)
--- NOTE | 2024-01-20 12:41 | PTCARENOTE ---
Pt now steady on his feet and has been up and walking more, he denies pain, L CW dsg D+I.
[2024-01-20 13:18] LABS: Glucose - Point of Care 132 mg/dl (70-99)
--- NOTE | 2024-01-20 13:30 | W.PN.HOSP.TC ---
Addendum entered and electronically signed by Toño Prado MD 01/20/24 13:44:
was non compliant with meds due to cognitive issues. family will need to discuss care at home prior to dc. Will hold on insulin regimen on dc. Will eval with fam for safe discharge with tentative plan.
Original Note:
Today's Communication/Plan
-
resume bb
ppm check in 1-2 weeks, then cards f/u thereafter
f/u bmp outpatient
ACEI
insulin rx
Assessment / Plan
Assessment / Plan
Physical Exam
General: No Apparent Distress and Comfortable
HEENT: Moist mucous membranes and Atraumatic
Respiratory: Clear
Cardiac: Regular Rhythm and Bradycardia
GI: Soft and Non Tender
Rectal: No Maroon Stools
Genito-urinary: No costovertebral tender
Musculoskeletal: No Cyanosis
Skin: Rash
Neuro: AO x to self and surroundings. Followed commands.
Psych: Calm and Intact Judgment/Insight
73 years old male presented with abnormal EKG, was found to have second-degree AV block, Mobitz type I
# Heart block, second-degree AV block type II
Patient feels well. Not dizzy. Heart rate was around 50
Echocardiogram showed left ventricular ejection fraction 55 to 60%, mild to moderate MR, trace aortic regurgitation, mild TR.
Appreciate cardiology input
Lexiscan nuclear stress test unremarkable,
PPM 01/18
restart BB now that PPM placed
Incision check in 1-2 weeks with us then follow up with local cardiology
# Mild memory impairment/ cognitive impairment
Not a confirmed diagnosis yet. Daughter Dayanna took him to neurologist Dr. Wilkinson in [place] with [place] after family suspected dementia. Pt is scheduled for MRI brain in OP setting on 02/08. Possibilty of not taking his meds regularly at home.
# Right shoulder pain
c/w Tylenol
# Diabetes.
Poorly controlled.
Blood glucose 130 this morning
will continue with insulin sliding scale. Added low dose Lantus - scripts given
Avoid hypoglycemia. Patient reported high blood sugar at home.
Hemoglobin A1c around 10.6
Back on metformin. Patient will need a better outpatient management. Will refer him to OP diabetic education office
#History of primary hypertension. Would to avoid lowering blood pressure with bradycardia. Given low dose FERNANDO
cont ACEI
# Hyponatremia, sodium on admission 132. Stable sodium around 133
mild
monitor outpatietn
# DVT prophylaxis, SQ Heparin
More than 30 minutes spent in discharge including
Final examination of the patient
Summarizing hospital stay
Instructions for continuing care to all relevant caregivers
Preparation of discharge records, prescriptions, and referral forms
Total time spent (35 in minutes):
Anticipated Discharge: Today
Subjective/Interval History
-
Date of Service: January 20, 2024
no acute events, ppm placed with no issues yest
Objective Data
-
Labs:
Laboratory Results
01/20/24
05:12
WBC 7.7
Hgb 15.8
Hct 45.0
Plt Count 137 D
Sodium 134 L
Potassium 4.5
Chloride 105
Carbon Dioxide 22
BUN 26 H
Creatinine 0.9
Glucose 107 H
Calcium 9.6
Vital Signs:
Vital Signs
Temp Pulse Resp BP Pulse Ox
98.0 F 60 18 157/86 98
01/20/24 12:07 01/20/24 08:00 01/20/24 12:07 01/20/24 07:35 01/20/24 12:07
I&O
01/19/24 01/20/24 01/21/24
06:59 06:59 06:59
Intake Total 480 / 480 160 / 160
Balance 480 / 480 160 / 160
Review of Systems
-
History Source: Patient
All other systems: Not reviewed unless documented
Data Reviewed
-
Labs: Labs Reviewed by me
--- NOTE | 2024-01-20 13:50 | CM ---
Chart reviewed. Confirmed with the daughter the patient lives in an apartment alone, 1st floor, 3 NARA, 0 DME. Patient still driving but becoming more forgetful. Patient being followed by a neurologist as an outpatient. Patient's daughter
concerned about the patient going home alone. Family to hold a meeting this evening to decide on plan of care. Referral sent to [facility]. I gave the daughter 2 numbers for [facility]. Plan is for the patient to return home with family and .
CM to follow
[2024-01-20 17:33] LABS: Glucose - Point of Care 168 mg/dl (70-99)
[2024-01-20] MEDS: NOVOLOG FLEXPEN-HIGH RESISTANCE 2 UNITS SC (17:39)
[2024-01-20] MEDS: ASPIR LOW (ENTERIC COATED) 81 MG PO (21:43)
[2024-01-20] MEDS: LIPITOR 40 MG PO (21:43)
[2024-01-20] MEDS: LANTUS 0.0500000000000000028 UNITS SC (21:44)
[2024-01-20] MEDS: MELATONIN 5 MG PO (21:44)
[2024-01-20 21:46] LABS: Glucose - Point of Care 121 mg/dl (70-99)
[2024-01-21] VITALS: BP 144/82
[2024-01-21 04:15] VITALS: BP 131/83
[2024-01-21 07:01] VITALS: BP 152/81
[2024-01-21 07:10] LABS: Glucose - Point of Care 119 mg/dl (70-99)
--- NOTE | 2024-01-21 07:40 | PTCARENOTE ---
Assumed care of pt from prev nsg shift. Pt AAOx2, confused to time but reorients easily. Pt is forgetful, seeming to have short term memory issues. Pt found to have gotten dressed, taken off night monitor, & post-op PPM dressing without speaking
w/nurse first. Notified Brenda Salinas, [facility] & Dr Fitch. quality assurance monitor replaced & pt assisted back into hospital gown. New L chest wall PPM site w/steri's intact w/small amt of old bloody drainage. No signs or symptoms of active bleeding or hematoma.
Discussed activity restrictions & wound care w/pt. Pt verbalizes understanding. Brenda Salinas in to see pt this AM. Pt w/VS stable, HR 60 on night monitor. Pt w/call griffith within reach & awaiting discharge. Plan of care ongoing.
[2024-01-21] MEDS: GLUCOPHAGE 1000 MG PO (08:42)
[2024-01-21] MEDS: NOVOLOG FLEXPEN-HIGH RESISTANCE 1 UNITS SC (08:42)
[2024-01-21] MEDS: HEPARIN 5000 UNITS SC (08:43)
[2024-01-21] MEDS: FLOMAX 0.400000000000000022 MG PO (08:43)
[2024-01-21] MEDS: ZESTRIL 5 MG PO (08:43)
--- NOTE | 2024-01-21 11:11 | CM ---
Chart reviewed. Patient is independent of ADLS, lives alone in an apartment 1st floor, 3 NARA, 0 DME. Referral sent to [facility]. Plan is for the patient to return home with his daughter and [facility]. CM to follow
--- NOTE | 2024-01-21 11:29 | W.PN.HOSP.TC ---
Addendum entered and electronically signed by Toño Prado MD 01/21/24 16:28:
[id number]
Original Note:
Today's Communication/Plan
-
resume bb
ppm check in 1-2 weeks, then cards f/u thereafter
f/u bmp outpatient
ACEI
metformin- hold on insulin at this time with fluctuating supervision in patient with non compliance and questionable memory impairment
Assessment / Plan
Assessment / Plan
Physical Exam
General: No Apparent Distress and Comfortable
HEENT: Moist mucous membranes and Atraumatic
Respiratory: Clear
Cardiac: Regular Rhythm and Bradycardia
GI: Soft and Non Tender
Rectal: No Maroon Stools
Genito-urinary: No costovertebral tender
Musculoskeletal: No Cyanosis
Skin: Rash
Neuro: AO x to self and surroundings. Followed commands.
Psych: Calm and Intact Judgment/Insight
73 years old male presented with abnormal EKG, was found to have second-degree AV block, Mobitz type I
# Heart block, second-degree AV block type II
Patient feels well. Not dizzy. Heart rate was around 50
Echocardiogram showed left ventricular ejection fraction 55 to 60%, mild to moderate MR, trace aortic regurgitation, mild TR.
Appreciate cardiology input
Lexiscan nuclear stress test unremarkable,
PPM 01/18
restart BB now that PPM placed
Incision check in 1-2 weeks with us then follow up with local cardiology
# Mild memory impairment/ cognitive impairment
Not a confirmed diagnosis yet. Daughter Dayanna took him to neurologist Dr. Wilkinson in [place] with [facility] after family suspected dementia. Pt is scheduled for MRI brain in OP setting on 02/08. Possibilty of not taking his meds regularly at home.
# Right shoulder pain
c/w Tylenol
# Diabetes.
Poorly controlled.
Blood glucose 130 this morning
Avoid hypoglycemia. Patient reported high blood sugar at home.
Hemoglobin A1c around 10.6 - was not taking meds
Back on metformin. Patient will need a better outpatient management. Will refer him to OP diabetic education office
avoid insulin due to pts mental impairment and non compliance while simultaneously going home with fluctuation in supervision. f/u pcp
#History of primary hypertension. Would to avoid lowering blood pressure with bradycardia. Given low dose FERNANDO
cont ACEI
# Hyponatremia, sodium on admission 132. Stable sodium around 133
mild
monitor outpatient
# DVT prophylaxis, SQ Heparin
More than 30 minutes spent in discharge including
Final examination of the patient
Summarizing hospital stay
Instructions for continuing care to all relevant caregivers
Preparation of discharge records, prescriptions, and referral forms
Total time spent (35 in minutes):
Anticipated Discharge: Today
Subjective/Interval History
-
Date of Service: January 21, 2024
no acute events
Objective Data
-
Vital Signs:
Vital Signs
Temp Pulse Resp BP Pulse Ox
97.8 F 66 18 152/81 97
01/21/24 07:49 01/21/24 07:01 01/21/24 07:49 01/21/24 07:01 01/21/24 07:49
I&O
01/20/24 01/21/24 01/22/24
06:59 06:59 06:59
Intake Total 160 / 160 240 / 240
Balance 160 / 160 240 / 240
Review of Systems
-
History Source: Patient
All other systems: Not reviewed unless documented
Data Reviewed
-
Diagnostic Radiology: Image personally visualized and interpreted and Report Reviewed by me
Labs: Labs Reviewed by me
--- NOTE | 2024-01-21 11:38 | W.DS.TRANS ---
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
-
Discharge Instructions:
Discharge Diagnosis/Procedures Pacemaker implant
Diet Low Cholesterol,Low Fat
Driving Restrictions No driving for 1 week
Bathing Restrictions no pools, tubs, baths
Blood Work hb1ac - 3 months
Instructions:
Stand-Alone Forms: DC Inst - Implanted Device
Changes to Home Medications: Yes
Discharge Medications:
DC Medications w/original date entered in [employer] [facility]
aspirin 81 mg tablet,delayed release 81 mg PO HS Blood Clot Prevention/Tx 01/15/24
atorvastatin 40 mg tablet 40 mg PO HS High Cholesterol 01/15/24
docusate sodium 100 mg capsule (Stool Softener) 100 mg PO HS Constipation 01/15/24
metformin 1,000 mg tablet 1,000 mg PO BIDWMEAL Diabetes 01/15/24
metoprolol tartrate 25 mg tablet 25 mg PO HS Blood Pressure 01/15/24
sildenafil 100 mg tablet 100 mg PO DAILY PRN ED 01/15/24
tamsulosin 0.4 mg capsule 0.4 mg PO Q48H@2200 Urinary Issue 01/15/24
blood sugar diagnostic (Accu-Chek Guide test strips) #200 ea 01/20/24
blood-glucose meter (Accu-Chek Guide Glucose Meter) #1 ea 01/20/24
lancets (Accu-Chek Softclix Lancets) #200 ea 01/20/24
lisinopril 5 mg tablet 5 mg PO DAILY 30 days #30 tabs 01/20/24
Home Medication Changes
blood sugar diagnostic (Accu-Chek Guide test strips) #200 ea 01/20/24
blood-glucose meter (Accu-Chek Guide Glucose Meter) #1 ea 01/20/24
lancets (Accu-Chek Softclix Lancets) #200 ea 01/20/24
lisinopril 5 mg tablet 5 mg PO DAILY 30 days #30 tabs 01/20/24
Pending Results: No
[2024-01-21 11:43] LABS: Glucose - Point of Care 162 mg/dl (70-99)
[2024-01-21 12:09] VITALS: BP 142/68
[2024-01-21] MEDS: NOVOLOG FLEXPEN-HIGH RESISTANCE SC (13:49)
--- NOTE | 2024-01-21 14:37 | PTCARENOTE ---
Pt D/C'd to daughter's home, w/son providing transportation. Discussed D/C instructions & activity restrictions w/pt & his son as pt has short term memory issues. Pt stated 'it's all too much information'; Pt's son, Mitchell, stated that he 'will go
over everything w/his sister later & will call the Dr's office w/any questions'. Pt is also set up w/[facility]N through [facility] for [facility]. Pt taken out to car via wheelchair by staff.
== END 2024-01-21 14:47 | disposition home health service (06) | DRG 243 ==
LOC: IVU 13:26
PROVIDERS: Internal Medicine; Internal Medicine Cardiovascular Disease; ADMITTING PHYSICIAN Internal Medicine; ATTENDING PHYSICIAN Internal Medicine; CONSULT PHYSICIAN Internal Medicine; EMERGENCY PHYSICIAN Emergency Medicine; FAMILY PHYSICIAN Family Medicine
PROC: 3E033HZ Introduction of Radioactive Substance into Peripheral Vein, Percutaneous Approach (ICD-10-PCS; 2024-01-18)
PROC: 4A12XM4 Monitoring of Cardiac Stress, External Approach (ICD-10-PCS; 2024-01-18)
PROC: 02H63JZ Insertion of Pacemaker Lead into Right Atrium, Percutaneous Approach (ICD-10-PCS; 2024-01-19)
PROC: 0JH606Z Insertion of Pacemaker, Dual Chamber into Chest Subcutaneous Tissue and Fascia, Open Approach (ICD-10-PCS; 2024-01-19)
PROC: 02HK3JZ Insertion of Pacemaker Lead into Right Ventricle, Percutaneous Approach (ICD-10-PCS; 2024-01-19)
DX: I44.1 Atrioventricular block, second degree (principal); E87.1 Hypo-osmolality and hyponatremia; R42 Dizziness and giddiness; I10 Essential (primary) hypertension; E11.65 Type 2 diabetes mellitus with hyperglycemia; I48.91 Unspecified atrial fibrillation; L30.9 Dermatitis, unspecified; F17.290 Nicotine dependence, other tobacco product, uncomplicated; E78.00 Pure hypercholesterolemia, unspecified; I47.20 Ventricular tachycardia, unspecified; I34.0 Nonrheumatic mitral (valve) insufficiency; M25.511 Pain in right shoulder; G31.84 Mild cognitive impairment of uncertain or unknown etiology; N40.0 Benign prostatic hyperplasia without lower urinary tract symptoms; Z96.652 Presence of left artificial knee joint; Z60.2 Problems related to living alone; Z86.718 Personal history of other venous thrombosis and embolism; Z79.82 Long term (current) use of aspirin; Z79.84 Long term (current) use of oral hypoglycemic drugs; Z91.148 Patient's other noncompliance with medication regimen for other reason
CPT/HCPCS: 33208; 71045; 78452; 80048; 80053; 82962; 83036; 83735; 84443; 84484; 85025; 85027; 86618; 93005; 93017; 93306; 94760; 97116; 97163; 97164; 97166; 97530; 97535; 99285; A9500; C1785; C1892; C1898; J2785